=== PATIENT | female | born 1955 | race Caucasian/White ===

== ENCOUNTER 2017-07-26 17:49 | Inpatient (IN) | payer OTHER, MEDICARE ==
[~2017-07-26] VITALS: Ht 162.6 cm; Wt 60.3 kg
[2017-07-26] MEDS ORDERED: CLON1TAB PO (18:02)
[2017-07-26] MEDS ORDERED: CALC1CAP29 PO (18:02)
[2017-07-26] MEDS ORDERED: ATOR20TA PO (18:02)
[2017-07-26] MEDS ORDERED: CYCL10TA9 PO (18:02)
[2017-07-26] MEDS ORDERED: HYDR-548 PO (18:02)
[2017-07-26] MEDS ORDERED: CARI250T PO (18:03)
[2017-07-26] MEDS ORDERED: TRAM50TA PO (18:03)
[2017-07-26] MEDS ORDERED: CYAN100T3 PO (18:03)
[2017-07-26] MEDS ORDERED: PANTOPRAZOLE PO (18:03)
[2017-07-26] MEDS ORDERED: ASCO100T12 PO (18:03)
[2017-07-26] MEDS ORDERED: CHOL100043 PO (18:03)
--- NOTE | 2017-07-26 18:06 | NUR ---
Per Dr. Pickett pt is medically clear and may be trans to [facility]. Report given to Joann LOUISE.
[2017-07-26] MEDS ORDERED: MAGNESIUM HYDROXIDE 30 ML LIQUID UDC PO PRN (18:30)
[2017-07-26] MEDS ORDERED: LORAZEPAM 0.5 MG TABLET PO PRN (18:30)
[2017-07-26] MEDS ORDERED: MAG HYDROX/AL HYDROX/SIMETH 30 ML LIQUID UDC PO PRN (18:30)
[2017-07-26 20:52] VITALS: BP 121/82
[2017-07-26] MEDS: TEMAZEPAM 7.5 MG CAPSULE PO PRN (21:11)
--- NOTE | 2017-07-26 21:54 | NUR ---
GPS: Admitted to unit earlier accompanied by her a 61 yr.old female in stable condition. Pt.is on a 72 hour hold for DTS. Pt. overdosed on her prescription meds. s/p argument with her and family. Pt.is anxious,depressed but nice and cooperative. Contracts for safety while in the hosp. Skin assessment/personal belongings list completed. and notified to reconcile meds. Safe environment provided. Re-assured prn. Will monitor.
[2017-07-26] MEDS ORDERED: CARISOPRODOL 350 MG TABLET PO PRN (22:15)
[2017-07-26] MEDS ORDERED: HYDROCODONE/APAP 10-325 MG TABLET PO PRN (22:15)
[2017-07-26] MEDS ORDERED: CARISOPRODOL 350 MG TABLET ONE (22:37)
[2017-07-27 07:05] LABS: BASOPHILS % (AUTO) 0.7 % (0.0-2.0); EOSINOPHILS # (AUTO) 0.2 K/uL (0.0-0.7); HEMATOCRIT 31.7 % (31.2-41.9); HEMOGLOBIN 11.1 g/dL (10.9-14.3); LYMPHOCYTES # (AUTO) 1.4 K/uL (20.0-40.0); LYMPHOCYTES % (AUTO) 28.9 % (20.5-51.5); MEAN CORPUSCULAR HEMOGLOBIN 31.2 uug (24.7-32.8); MEAN CORPUSCULAR HGB CONC 35 g/dL (32.3-35.6); MEAN CORPUSCULAR VOLUME 89.4 fL (75.5-95.3); MONOCYTES # (AUTO) 0.4 K/uL (2.0-10.0); NEUTROPHILS # (AUTO) 2.8 K/uL (1.8-8.9); NEUTROPHILS % (AUTO) 58.4 % (38.5-71.5); PLATELET COUNT (AUTO) 257 K/uL (179-408); RED BLOOD CELL COUNT(AUTO) 3.55 MIL/uL (3.63-4.92); WHITE BLOOD COUNT (AUTO) 4.8 K/uL (3.8-11.8)
[2017-07-27 07:11] LABS: BILIRUBIN,TOTAL 0.6 mg/dL (0.2-1.0); CREATININE 0.8 mg/dL (0.6-1.3); MAGNESIUM 1.8 mg/dL (1.8-2.4); PHOSPHOROUS 4.3 mg/dL (2.5-4.9); POTASSIUM 4.1 mmol/L (3.5-5.1); TOTAL PROTEIN, SERUM 7.5 g/dL (6.4-8.2)
[2017-07-27 07:20] LABS: THYROID STIMULATING HORMONE 0.474 mIU/mL (0.358-3.740)
[2017-07-27 07:30] VITALS: BP 112/80
[2017-07-27] MEDS: CHOLECALCIFEROL 1,000 UNIT TABLET PO SCH (09:00)
[2017-07-27] MEDS: CYANOCOBALAMIN 100 MCG TABLET PO SCH (09:00)
--- NOTE | 2017-07-27 12:16 | NUR ---
Inital DC Plan: Patient currently resides at home [[id number] [facility] [address] [address]] with her Sudhir [[phone]]. Patient and her husand stated that she would like to go to [facility] [[address] [place] [id number]] for continued treatment. SW will follow up with MD, patient, and patient's family to discuss most appropriate discharge plans. SW will form a safe and proper discharge.
--- NOTE | 2017-07-27 12:22 | NUR ---
Panama Hat Smearer: AUGUSTIN submitted Firearms Mental Health Report to [facility] on 07/27.
[2017-07-27] MEDS: ACETAMINOPHEN 325 MG TABLET PO PRN ×2 (14:27→22:03)
--- NOTE | 2017-07-27 15:03 | NUR ---
Tag Meter Operator: Per request of patient's Sudhir [[phone]], SW provided information regarding Power of Pre Sales Systems Engineer.
[2017-07-27 15:25] VITALS: BP 117/72
[2017-07-27 20:07] VITALS: BP 134/76
[2017-07-27] MEDS: TEMAZEPAM 7.5 MG CAPSULE PO PRN (20:18)
[2017-07-27] MEDS ORDERED: ATORVASTATIN 20 MG TABLET PO SCH (21:00)
[2017-07-27] MEDS ORDERED: ATORVASTATIN 40 MG TABLET PO SCH (21:00)
[2017-07-28 07:30] VITALS: BP 128/76
--- NOTE | 2017-07-28 07:35 | NUR ---
GPS/NSG DR. MANCILLA SAW THE PATIENT, SPOKE TO PATIENTS , CALLED FACILITY PASSAGES AND SPOKE TO ENIO WIRE INSULATOR, WANTS TO TRANSFER HER AND DR. MAY. TO ENDORSE TO A.M. SHIFT TO CALL FACILITY TO ARRANGE PROPER DISCHARGE.
[2017-07-28] MEDS: CHOLECALCIFEROL 1,000 UNIT TABLET PO SCH (08:15)
[2017-07-28] MEDS: CYANOCOBALAMIN 100 MCG TABLET PO SCH (08:15)
[2017-07-28] MEDS ORDERED: DULOXETINE 20 MG CAPSULE.DR PO SCH (09:00)
--- NOTE | 2017-07-28 12:40 | NUR ---
Pt to D/C to [facility] [ [address] [place] [id number]] Pt will follow up with boat motor mechanic and psychiatrist at the facility. Pt D/C with D/C paper work, exit care packet, all belongings, valuables, and prescriptions. Pt v/s stable for discharge, skin intact, pt denies suicidal ideation at this time and contracts for safety inside and outside of hospital. Report was given to Vandana (client need hyperion administrator) and Wen (Nurse).
== END 2017-07-28 12:30 | disposition other institution (70) | DRG 885 ==
LOC: ER 17:50 → GPS 18:16
PROVIDERS: ADMIT Psychiatry & Neurology Psychiatry; ATTEND Internal Medicine
DX: F33.2 Major depressive disorder, recurrent severe without psychotic features (principal); E78.5 Hyperlipidemia, unspecified; S12.9XXS Fracture of neck, unspecified, sequela; M26.609 Unspecified temporomandibular joint disorder, unspecified side; T42.4X2D Poisoning by benzodiazepines, intentional self-harm, subsequent encounter; T42.8X2D Poisoning by antiparkinsonism drugs and other central muscle-tone depressants, intentional self-harm, subsequent encounter; T48 Poisoning by, adverse effect of and underdosing of agents primarily acting on smooth and skeletal muscles and the respiratory system; G43.909 Migraine, unspecified, not intractable, without status migrainosus; F41.9 Anxiety disorder, unspecified; Z98.1 Arthrodesis status; Z63.8 Other specified problems related to primary support group; M85.80 Other specified disorders of bone density and structure, unspecified site; M19.90 Unspecified osteoarthritis, unspecified site; H54.7 Unspecified visual loss; G89.29 Other chronic pain; R74.0 Nonspecific elevation of levels of transaminase and lactic acid dehydrogenase [LDH]; V89.2XXS Person injured in unspecified motor-vehicle accident, traffic, sequela; M50.30 Other cervical disc degeneration, unspecified cervical region; I10 Essential (primary) hypertension
CPT/HCPCS: 36415; 83735; 84100; 84443; 85025; A4663